=== PATIENT | female | born 1990 | race African-American/Black ===

== ENCOUNTER 2020-01-20 12:16 | Emergency (ER) | payer SELFPAY ==
[~2020-01-20] VITALS: Ht 154.9 cm; Wt 65.0 kg
[2020-01-20 12:29] VITALS: BP 111/72
== END 2020-01-20 13:16 | disposition home or self-care (01) ==
LOC: ER 12:52
DX: T78.49XA Other allergy, initial encounter (principal); X58.XXXA Exposure to other specified factors, initial encounter
CPT/HCPCS: 99281